=== PATIENT | female | born 1985 | race Caucasian/White ===

== ENCOUNTER 2017-02-19 07:42 | Day surgery (SDC) | payer MEDICAID ==
[2017-02-19] VITALS (12 sets, daily range): BP systolic 109–142; BP diastolic 74–92; PULSE 50–63; RESP 11–50; Ht 152.4 cm; Wt 56.6 kg
[~2017-02-19] VITALS: Ht 152.4 cm; Wt 56.6 kg
[~2017-02-19 07:42] MED LIST: LIDOCAINE 2% (SDV) 5 ML INJ ONE; PREN1TAB49 PO
[2017-02-19 09:11] LABS: ADD SCAN DIFF NO
[2017-02-19] MEDS ORDERED: FENTAnyl 50 MCG/ML VIAL ONE (09:16)
[2017-02-19] MEDS ORDERED: PROPOFOL 20 ML ONE (09:16)
[2017-02-19] MEDS ORDERED: NEOSTIGMINE 3 MG/3 ML SYRINGE ONE (09:16)
[2017-02-19] MEDS ORDERED: MIDAZOLAM 1 MG/ML 2 ML INJ ONE (09:16)
[2017-02-19] MEDS ORDERED: CEFAZOLIN 1 GM INJ ONE (09:16)
[2017-02-19] MEDS ORDERED: ROCURONIUM 50 MG INJ ONE (09:16)
[2017-02-19] MEDS ORDERED: GLYCOPYRROLATE 0.4 MG INJ ONE (09:16)
[2017-02-19] MEDS ORDERED: ONDANSETRON 4 MG INJ ONE (09:17)
[2017-02-19] MEDS ORDERED: DEXAMETHASONE 4 MG/ML 1 ML INJ ONE (09:17)
[2017-02-19 09:21] LABS: ABNORMAL IP MESSAGE 1; BASOPHILS % 0.6 % (0.0-2.0); EOSINOPHILS # 0.2 10^3/ul (0.0-0.5); EOSINOPHILS % 3.5 % (0.0-7.0); HEMATOCRIT 37.1 % (37.0-47.0); LYMPHOCYTES # 1.8 10^3/ul (0.8-2.9); LYMPHOCYTES % 28.3 % (15.0-51.0); MEAN CORPUSCULAR HEMOGLOBIN 28.2 pg (29.0-33.0); MEAN CORPUSCULAR HGB CONC 32.3 g/dl (32.0-37.0); MEAN CORPUSCULAR VOLUME 87.1 fl (82.0-101.0); MONOCYTE # 0.5 10^3/ul (0.3-0.9); MONOCYTES % 7.9 % (0.0-11.0); NEUTROPHIL # 3.7 10^3/ul (1.6-7.5); NEUTROPHILS % 59.5 % (39.0-77.0); PLATELET COUNT 81 10^3/UL (140-415); RED BLOOD COUNT 4.26 10^6/ul (4.20-5.40); RED CELL DISTRIBUTION WIDTH 13.2 % (11.5-14.5); WHITE BLOOD COUNT 6.2 10^3/ul (4.8-10.8)
--- NOTE | 2017-02-19 10:38 | PREOPHP ---
DATE OF ADMISSION: 02/19/2017 HISTORY OF PRESENT ILLNESS: Ms. Ayde Love is a 31-year-old 3, para 3, desires permane nt surgical sterilization. PAST MEDICAL HISTORY: None. MEDICATIONS: Depo-Provera on 12/26/2016. PAST SURGICAL HISTORY: None. OBSTETRIC HISTORY: x3 vaginal deliveries. GYNECOLOGIC HISTORY: 13, regular 3 to 4 days. Denies any sexually transmitted diseases. Sexually active with 1 partner. SOCIAL HISTORY: Denies any smoking, drugs or alcohol. FAMILY HISTORY: None. REVIEW OF SYSTEMS: All within normal except history of present illness. PHYSICAL EXAMINATION: HEENT: Within normal. LUNGS: CTA bilateral. CARDIOVASCULAR: S1, S2, regular rhythm. ABDOMEN: Soft, nontender, negative distention. EXTREMITIES: Negative edema. No calf tenderness. VAGINAL: Normal external genitalia. Cervix negative CMT, negative lesions. Adnexa negative mass, nontender. Bilateral. Fundus within normal limits. ASSESSMENT: Multiparity, desires permanent surgical sterilization. PLAN: Consent for hysteroscopic tubal occlusion by Essure implant with possible laparoscopic bilate ral tubal sterilization. Risks, benefits and alternatives explained. All questions were answered. Dictated By: BAKARI JAMA/CHARLINE Conf#: [id number] DID#: [id number]
[2017-02-19] MEDS ORDERED: KETOROLAC 30 MG INJ ONE (11:09)
[2017-02-19] MEDS ORDERED: LABETALOL HCL 20MG INJ IV PRN (11:30)
[2017-02-19] MEDS ORDERED: DIPHENHYDRAMINE 50 MG INJ IV PRN (11:30)
[2017-02-19] MEDS ORDERED: hydrALAzine 20 MG INJ IV PRN (11:30)
[2017-02-19] MEDS ORDERED: FENTAnyl 50 MCG/ML VIAL IV PRN ×3 (11:30)
[2017-02-19] MEDS ORDERED: HYDROmorphONE (0.2 MG/ML) 10ML SYG IV PRN ×3 (11:30)
[2017-02-19] MEDS ORDERED: TRIMETHOBENZAMIDE 100 MG/ML VIAL IM PRN (11:30)
[2017-02-19] MEDS ORDERED: EPHEDrine SULFATE 50 MG/5 ML SYG IV PRN (11:30)
[2017-02-19] MEDS ORDERED: MIDAZOLAM 1 MG/ML 2 ML INJ IV PRN (11:30)
[2017-02-19] MEDS ORDERED: ONDANSETRON 4 MG INJ IV PRN (11:30)
[2017-02-19] MEDS ORDERED: MEPERIDINE 25 MG INJ IV PRN (11:30)
--- NOTE | 2017-02-19 11:33 | PDOCDIS ---
Discharge Instructions CONDITION Patient Condition: Fair HOME CARE INSTRUCTIONS: Diet Instructions: Regular ACTIVITY: Activity Restrictions: No Restrictions FOLLOW UP/APPOINTMENTS Appointments 2 weeks SCHOOL/WORK RELEASE May return to School/Work with: No Restrictions BAKARI TALLEY MD Feb 19, 2017 11:32
--- NOTE | 2017-02-20 10:33 | OPR ---
DATE OF OPERATION: 02/19/2017 PREOPERATIVE DIAGNOSIS: A 31-year-old 3, para 3, desires permanent surgical sterilization. POSTOPERATIVE DIAGNOSIS: A 31-year-old 3, para 3, desires permanent surgical sterilization. OPERATION PERFORMED: Hysteroscopic tubal occlusion by Essure implants. Lot #[id number]. SURGEON: Bakari Hunt MD FINDINGS: Bimanual size within normal, position anteverted. Hysteroscopic view of the uterus, adeq uate. Ostia normal. Adhesions absent. Placement of 3 trailing coils on the left and 3 trailing co ils on the right. ESTIMATED BLOOD LOSS: Minimal. SPECIMEN: None. COMPLICATIONS OF PROCEDURE: None. TYPE OF ANESTHESIA: General. DESCRIPTION OF PROCEDURE: After explaining the risks, benefits and alternatives to the patient and consent signed in chart, the patient was taken to the operating room where general anesthesia was ob tained without difficulty. The patient was then examined under anesthesia and found to have a small anteverted uterus with normal adnexa. She was then placed in a dorsal lithotomy position and prepa red and draped in a sterile fashion. A heavy weighted speculum was then placed in the patient's vagina and the anterior lip of the cervix was grasped with a single-tooth tenaculum. A hysteroscope was then entered into the uterine cavity and findings noted above. Both ostia were identified. The delivery catheter was then inserted int o the tubal ostia up to the black marker. The delivery catheter was retracted and the device deploy ed. After 10 seconds, the catheter was detached from the device. The device was in good position w ith 3 trailing coils on the right side. The procedure was repeated on the left side with 3 trailing coils. The procedure was completed. All instruments were removed from the patient's vagina. The patient tolerated the procedure well. All counts were correct x2. Before discharge, the patient was given a prescription for a hysterosalpingogram in 3 months and bir th control use until hysterosalpingogram shows tubal occlusion. Dictated By: BAKARI JAMA/CHARLINE Conf#: [id number] DID#: [id number]
== END 2017-02-19 13:17 | disposition home or self-care (01) ==
LOC: SDS 07:42
PROVIDERS: ATTEND Obstetrics & Gynecology
DX: Z30.2 Encounter for sterilization (principal)
CPT/HCPCS: 58565; 85025; 86850; 86900; 86901; A4264; J0690; J1100; J1885; J2250; J2405; J2710; J3010; Z7512; Z7610

== ENCOUNTER 2017-05-16 08:51 | Emergency (ER) | END 2017-05-16 11:24 | disposition home or self-care (01) | DX: N93.9 Abnormal uterine and vaginal bleeding, unspecified (principal); R10.2 Pelvic and perineal pain; R40.2412 Glasgow coma scale score 13-15, at arrival to emergency department | CPT/HCPCS: 76830; 76856; Z7502 ==